=== PATIENT | female | born 1965 | race Caucasian/White ===

== ENCOUNTER 2017-04-17 11:23 | Inpatient (IN) | payer BC ==
[~2017-04-17] VITALS: Ht 167.6 cm; Wt 76.7 kg
[2017-04-17] MEDS ORDERED: BUPR300T PO (11:47)
[2017-04-17] MEDS ORDERED: CELE1CAP8 PO (11:47)
[2017-04-17] MEDS ORDERED: LEVO100T5 PO (11:47)
[2017-04-17] MEDS ORDERED: DULO1CAP3 PO (11:47)
[2017-04-17] MEDS ORDERED: ESTR2TAB PO (11:47)
[2017-04-17] MEDS ORDERED: PROG100C PO (11:47)
[2017-04-27] MEDS ORDERED: INSULIN HUMAN REGULAR 1,000 UNITS/10 ML VIAL SQ PRN (05:45)
[2017-04-27] MEDS ORDERED: METOPROLOL TARTRATE 25 MG TAB PO PRN (05:45)
[2017-04-27] MEDS ORDERED: LACTATED RINGER'S 1000 ML IV PRN (05:45)
[2017-04-27] MEDS ORDERED: CHLORHEXIDINE GLUCONATE 2 % 1 PACK (2 CLOTHS) TOPICAL PRN (05:45)
[2017-04-27] MEDS ORDERED: ceFAZolin 2 GM PREMIX 50 ML IV SCH (05:45)
[2017-04-27] MEDS ORDERED: SODIUM CHLORID 0.9% 500 ML IV PRN (05:45)
[2017-04-27] MEDS ORDERED: CHLORHEXIDINE GLUCONATE 4% SOLN 120 ML BTL TOPICAL SCH (05:45)
[2017-04-27] MEDS ORDERED: POVIDONE IODINE 5% (ANTISEPSIS KIT) 4 APPLICATIONS EACH NARE PRN (05:45)
[2017-04-27 05:48] VITALS: BP 144/93; PULSE 82; RESP 20; TEMP 98.2; O2SAT 97
[2017-04-27] MEDS ORDERED: GENTAMICIN SULFATE 80 MG/2 ML VIAL ONE (06:26)
[2017-04-27] MEDS ORDERED: MIDAZOLAM HCL 2 MG/2 ML VIAL ONE (06:39)
[2017-04-27] MEDS ORDERED: FAMOTIDINE 20 MG/2 ML VIAL ONE (06:39)
[2017-04-27] MEDS ORDERED: DEXAMETHASONE SOD PHOS 4 MG/ML VIAL ONE (06:39)
[2017-04-27] MEDS ORDERED: ACETAMINOPHEN 1000 MG/100 ML VIAL IV ONE (06:39)
[2017-04-27] MEDS ORDERED: SODIUM CHLORIDE 0.9% FLUSH 5 ML FLUSH IVF PRN (07:00)
[2017-04-27] MEDS ORDERED: ONDANSETRON HCL 4 MG/2 ML VIAL IVP PRN (07:00)
[2017-04-27] MEDS ORDERED: KETOROLAC TROMETHAMINE 30 MG/ML (IVP) VIAL IVP SCH (07:00)
[2017-04-27] MEDS ORDERED: MORPHINE SULFATE 4 MG/ML INJ IV PUSH PRN (07:00)
[2017-04-27] MEDS ORDERED: SODIUM CHLORIDE 0.9% IV SCH ×5 (07:00→10:00)
[2017-04-27] MEDS ORDERED: EXPAREL PERI-ARTICULAR INJECTION (TOTAL VOL. 60 ML) P-ARTICULR SCH ×2 (07:00)
[2017-04-27] MEDS ORDERED: MAGNESIUM HYDROXIDE SUSP 30 ML CUP PO PRN (07:00)
[2017-04-27] MEDS ORDERED: ACETAMINOPHEN/HYDROcodone 325 MG/7.5 MG TAB PO PRN ×2 (07:00)
[2017-04-27] MEDS ORDERED: TRANEXAMIC ACID IV SCH ×5 (07:00→10:00)
[2017-04-27] MEDS ORDERED: BISACODYL 10 MG SUPP RECTAL PRN (07:00)
[2017-04-27] MEDS ORDERED: ZOLPIDEM TARTRATE 5 MG TAB PO PRN (07:00)
[2017-04-27] MEDS ORDERED: Post-op Orders (for Pharmacy) MISC XX ONE (07:00)
[2017-04-27] MEDS ORDERED: PROGESTERONE PO SCH (09:00)
[2017-04-27] MEDS: DULoxetine HCl DR 60 MG CAP PO SCH (09:00)
[2017-04-27] MEDS: LEVOTHYROXINE SODIUM 100 MCG TAB PO SCH (09:00)
[2017-04-27] MEDS: ESTRADIOL 1 MG TAB PO SCH (09:00)
[2017-04-27] MEDS: buPROPion HCL 150 MG SUSTAINED RELEASE TAB PO SCH ×2 (09:00→20:09)
[2017-04-27] MEDS: CELECOXIB 200 MG CAP PO SCH (09:00)
[2017-04-27] MEDS: ASPIRIN EC 81 MG TABEC PO SCH ×2 (09:00→20:09)
[2017-04-27] MEDS ORDERED: DO NOT ADM ANY ANTICOAGULANT DRUGS PRN (09:58)
[2017-04-27] MEDS: LACTATED RINGER'S 1000 ML INJ 1,000 ML IV SCH (10:20)
[2017-04-27] MEDS: KETOROLAC TROMETHAMINE 30 MG/ML (IVP) VIAL IVP SCH ×2 (10:20→22:34)
[2017-04-27] MEDS: SODIUM CHLORIDE 0.9% FLUSH 5 ML FLUSH IVF SCH ×2 (10:20→20:09)
--- NOTE | 2017-04-27 10:49 | MP ---
cc: Rocio LORENZO. DATE OF SURGERY: 04/27/2017 PREOPERATIVE DIAGNOSIS Primary osteoarthritis left hip with protrusio acetabuli. POSTOPERATIVE DIAGNOSIS Primary osteoarthritis left hip with protrusio acetabuli. OPERATION PERFORMED Left total hip arthroplasty with [place] prosthesis. SURGEON Edy Lorenzo MD [employer]DLEWARE ARCHITECT Delvin Rincon. CSFA ANESTHESIA Spinal with supplemental local. INDICATIONS AND FINDINGS This 52-year-old woman has a 5 to 6 year history of progressive worsening of pain in her hip with limitation of activities. Increasing weightbearing causes increasing pain. She was previously able to walk unlimited but is now down to about a mile. Since the onset she has had treatment with analgesics, nonsteroidal anti-inflammatory agents, intra-articular corticosteroid injections, exercises and ambulatory aids. She has progressively worsened in spite of these. Physical findings showed marked limitation of motion in her hip with an antalgic component to her gait. X-rays showed advanced arthritis with degenerative changes and protrusio on the right and mild protrusio on the left. There were osteophytes encircling the neck, more on the left than the right. There is significant eburnation and loss of articular cartilage. Operative findings showed severe osteoarthritis with protrusio with large osteophytes about the acetabulum and some erosion in the midportion. The prosthesis used was a Tam prosthesis with the acetabulum being a 48 mm outer diameter Tritanium cluster shell with a 32 mm inner diameter, X3 polyethylene 0 degree liner. The femoral component was an Accolade II stem size 3 x 127 degree offset angle with the head being a Biolox Delta 32 mm outer diameter with a -4 mm neck length. PROCEDURE The patient was brought to the clean-air operating suite and a spinal anesthetic was administered. She received prophylactic antibiotics in the form of Ancef according to the protocol and also received tranexamic acid according to protocol. She was taken to the clean-air operating suite where spinal anesthetic was administered. She was positioned in a lateral position with left hip up, with an axillary roll under the right shoulder. The left hip was then prepped with alcohol, Hibiclens and Chloraprep and draped in the usual manner with hip draped free. An appropriate time-out procedure was carried out. A posterior lateral incision was made directly over the posterior superior aspect of the greater trochanter measuring approximately 12 cm. This was deepened through the subcutaneous tissues to the fascia pramod and gluteus fascia which were exposed. The incision needed to be extended and was done so distally and proximally. The fascia pramod and gluteus fascia were incised in line with fibers in the skin incision. A Charnley retractor was placed with wound towels. The hip was positioned appropriately. The external rotators were released off the posterior aspect of the greater trochanter. The posterior capsulotomy was carried out with a posteriorly based flap. There was no ability to dislocate the hip at this time. Osteophytes were then trimmed with combination of variety of osteotomes and a rongeur. After adequate debridement the hip was then carefully dislocated. The femoral neck was transected with the oscillating saw at the appropriate level. The femoral head was removed. The femoral preparation was then carried out with the box osteotome followed by a curette and a canal finding awl. The curette was then used for further delineation of the medullary canal. Broaching was then started at size 0 and went one size increments up to size 3. Calcar planing was carried out. The hip was then repositioned. With retractors in place the anterior osteophyte rim was identified to have displaced. This was then removed. With retractors in place the acetabulum was then prepared using reamers starting at 45 mm and going in 1-mm increments to 48 mm. Deepening of the acetabulum was not done because of the preexisting protrusio. After adequate reaming had been accomplished trial prosthesis was impacted into place. This seated appropriately. A size 48 mm Tritanium cup was impacted into place. When this was seated it was repositioned and a single screw was inserted. A trial prosthesis liner was inserted. Multiple trials were then carried out to identify appropriate alignment. The femoral component was then progressively deepened with repeat broaching. When this was adequate the acetabular liner was then repositioned again and the screw reinserted. This gave better appearance. The re-trialing was carried out. After the final deepening of the medullary canal of the femur the broach was removed. The hip was irrigated. Local anesthesia was administered throughout the capsular area with Exparel. The size 3 x 127 degree prosthesis was impacted into place and seated appropriately. Trial reduction was carried out again with a -4 mm neck length. This appeared to be appropriate. A -4 mm neck length 32 mm outer diameter Biolox Delta head was placed onto the cleaned and dried femoral trunnion. When this was seated the hip was reduced. The stability was excellent. The motion was good. The leg length appeared appropriate. The stability was excellent. There was no pistoning. Wound closure then commenced using #1 Vicryl interrupted transosseous sutures with a Krackow technique on the soft tissues. The fascia pramod and gluteus fascia were repaired with #1 Vicryl interrupted [id number] sutures after verifying the integrity of the sciatic nerve. The subcutaneous tissues were closed with 2-0 Vicryl interrupted simple sutures with buried knots. The skin was closed with continuous subcuticular closure of 4-0 Monocryl. The wound was then dressed with Steri-Strips followed by dry dressing, 4 x 4's, ABD and Medipore compression dressing. The patient was placed into a knee immobilizer and transferred to the recovery room in satisfactory condition having tolerated the procedure well. COUNTS Counts were correct. SPECIMENS None. ESTIMATED BLOOD LOSS 650 mL. MD JOEY Smith/BONILLA /9:50 AM /10:15 AM
--- NOTE | 2017-04-27 11:23 | RADRPT ---
EXAM DATE/TIME: 04/27/2017 10:36 [facility] COMPARISON: No previous studies available for comparison. INDICATIONS : Left hip prosthesis. MEDICAL HISTORY : None. SURGICAL HISTORY : None. ENCOUNTER: Initial ACUITY: 1 day PAIN SCORE: 7/10 LOCATION: Left hip FINDINGS: The patient is status post a total hip arthroplasty with a bipolar prosthesis. Prosthesis is well-sea rishabh. Alignment is anatomic. A fracture is not appreciated. CONCLUSION: Anatomic alignment. Carlos Jansen MD FACR Board Certified Radiologist. This report was verified electronically.
[2017-04-27 11:40] VITALS: BP 120/66; PULSE 76; RESP 16; TEMP 95.9; O2SAT 98
[2017-04-27] MEDS ORDERED: LACTATED RINGER'S 1000 ML INJ 1,000 ML IV ONE (11:49)
[2017-04-27] MEDS ORDERED: PROPOFOL 200 MG/20 ML AMP IV ONE (11:49)
[2017-04-27] MEDS ORDERED: ONDANSETRON HCL 4 MG/2 ML VIAL IV PUSH ONE (11:49)
[2017-04-27 15:30] VITALS: BP 124/61; PULSE 71; RESP 16; TEMP 96.2; O2SAT 99
[2017-04-27 15:40] VITALS: O2SAT 98
--- NOTE | 2017-04-27 16:12 | PD.CONS ---
HPI Service [facility] Consult Requested By Dr. Colbert Reason for Consult Medical management Primary Care Physician Junior Montiel MD Diagnoses: History of Present Illness This is a 52-year-old white female with significant past medical history of osteoarthritis and hypothyroid. Patient admitted for elective orthopedic surgery. Patient underwent left total hip arthroplasty. Patient resting comfortably at this time, pain well managed. She attempted to get up earlier and became very nauseous and dizzy; now resting comfortably and has no complaints. Hospital services are requested for medical management Review of Systems Constitutional: DENIES: Diaphoretic episodes, Fatigue, Fever, Weight gain, Weight loss, Chills, Dizziness, Change in appetite, Night Sweats Endocrine: DENIES: Abnorml menstrual pattern, Heat/cold intolerance, Polydipsia , Polyuria, Polyphagia Eyes: DENIES: Blurred vision, Diplopia, Eye inflammation, Eye pain, Vision loss , Photosensitivity, Double Vision Ears, nose, mouth, throat: DENIES: Tinnitus, Hearing loss, Vertigo, Nasal discharge, Oral lesions, Throat pain, Hoarseness, Ear Pain, Running Nose, Epistaxis, Sinus Pain, Toothache, Odynophagia Respiratory: DENIES: Apneas, Cough, Snoring, Wheezing, Hemoptysis, Sputum production, Shortness of breath Gastrointestinal: DENIES: Abdominal pain, Black stools, Bloody stools, Constipation, Diarrhea, Nausea, Vomiting, Difficulty Swallowing, Anorexia Genitourinary: DENIES: Abnormal vaginal bleeding, Dysmenorrhea, Dyspareunia, Sexual dysfunction, Urinary frequency, Urinary incontinence, Urgency, Hematuria , Dysuria, Nocturia, Vaginal discharge Musculoskeletal: COMPLAINS OF: Joint pain, DENIES: Muscle aches, Stiffness, Joint Swelling, Back pain, Neck pain Integumentary: DENIES: Abnormal pigmentation, Pruritus, Rash, Nail changes, Breast masses, Breast skin changes, Nipple discharge Hematologic/lymphatic: DENIES: Bruising, Lymphadenopathy Immunologic/allergic: DENIES: Eczema, Urticaria Psychiatric: DENIES: Anxiety, Confusion, Mood changes, Depression, Hallucinations, Agitation, Suicidal Ideation, Homicidal Ideation, Delusions Past Family Social History Past Medical History Osteoarthritis Hypothyroid Anxiety Melanoma Past Surgical History Breast enhancement surgery Hysterectomy Melanoma removal Reported Medications Reported Meds & Active Scripts Active Reported Progesterone Micronized 100 Mg Cap 100 Mg PO DAILY Estradiol 2 Mg Tab 2 Mg PO DAILY Duloxetine (Duloxetine HCl) 60 Mg Capdr 60 Mg PO DAILY Celecoxib 200 Mg Cap 200 Mg PO DAILY Bupropion HCl ER 24 HR (Bupropion HCl) 300 Mg Tab 300 Mg PO DAILY Levothyroxine (Levothyroxine Sodium) 100 Mcg Tab 125 Mcg PO DAILY Allergies: Coded Allergies: No Known Allergies (Unverified , 04/27/17) Active Ordered Medications Inpatient Medications Acetaminophen/ Hydrocodone Bitart ([place] 7.5-325 Mg) 2 tab Q4H PRN PO PAIN SCALE 5 TO 10; Start 04/27/17 at 07:00 Aspirin (Ecotrin Ec) 81 mg BID PO ; Start 04/27/17 at 09:00 Bisacodyl (Dulcolax Supp) 10 mg DAILY PRN RECTAL CONSTIPATION; Start 04/27/17 at 07:00 Bupivacaine Liposome 20 ml/ Sodium Chloride 60 ml @ 120 mls/hr ONCE P-ARTICULR Last administered on 04/27/17 07:26; Start 04/27/17 at 07:00; Stop 04/27/17 at 13:00; Status DC Bupropion HCl (Wellbutrin Sr) 150 mg BID PO ; Start 04/27/17 at 09:00 Cefazolin Sodium/ Dextrose 50 ml @ 100 mls/hr ICD 9 CODER IV Last administered on 04/27/17 07:13; Start 04/27/17 at 05:45; Stop 04/28/17 at 05:44 Cefazolin Sodium/ Sodium Chloride (Ancef Inj/NS Inj) 100 ml @ 200 mls/hr Q6H IV Last administered on 04/27/17 13:09; Start 04/27/17 at 14:00; Stop 04/28/17 at 02:29 Celecoxib (CeleBREX) 200 mg DAILY PO ; Start 04/27/17 at 09:00 Chlorhexidine Gluconate (Chlorhexidine 2% Cloth) 3 pack ICD 9 CODER PRN TOPICAL SEE LABEL COMMENTS Last administered on 04/27/17 05:30; Start 04/27/17 at 05:45; Stop 04/30/17 at 05:44 Chlorhexidine Gluconate 1 applic 1 applic ONCE TOPICAL ; Start 04/27/17 at 05:45 ; Stop 04/30/17 at 05:44 Docusate Sodium (Colace) 100 mg BID PO ; Start 04/28/17 at 21:00 Duloxetine HCl (Cymbalta Dr) 60 mg DAILY PO ; Start 04/27/17 at 09:00 Estradiol (Estradiol) 2 mg DAILY PO ; Start 04/27/17 at 09:00 Insulin Human Regular (NovoLIN R INJ) See Protocol Table ... ICD 9 CODER PRN SQ SEE PROTOCOL TABLE; Start 04/27/17 at 05:45; Stop 04/30/17 at 05:44 IV Flush (NS Flush) 2 ml UNSCH PRN IVF FLUSH AFTER USING IV ACCESS; Start at 07:00 IV Flush 2 ml 2 ml BID IVF Last administered on 04/27/17 10:20; Start 04/27/17 at 09:00 Ketorolac Tromethamine (Toradol Inj) 15 mg Q6H IVP Last administered on 10:20; Start 04/27/17 at 10:00; Stop 04/29/17 at 04:01 Ketorolac Tromethamine 15 mg 15 mg Q6H IVP ; Start 04/27/17 at 07:00; Stop at 10:44; Status DC Lactated Ringer's (Lr 1000 ml Inj) 1,000 ml @ 80 mls/hr [id number] IV Last administered on 04/27/17 10:20; Start 04/27/17 at 06:47 Levothyroxine Sodium (Synthroid) 125 mcg DAILY@06 PO ; Start 04/27/17 at 09:00 Magnesium Hydroxide (Milk Of Magnesia Liq) 30 ml DAILY PRN PO CONSTIPATION; Start 04/27/17 at 07:00 Metoprolol Tartrate (Lopressor) 25 mg ICD 9 CODER PRN PO SEE LABEL COMMENTS; Start 04/27/17 at 05:45; Stop 04/30/17 at 05:44 Miscellaneous Information ALL NURSING DEPARTME... UNSCH PRN .XX SEE LABEL COMMENTS; Start 04/27/17 at 09:58; Stop 04/28/17 at 09:57 Miscellaneous Information (Post-op Orders (for Pharmacy)) STAT ONCE XX ; Start 04/27/17 at 07:00; Stop 04/27/17 at 08:33; Status DC Morphine Sulfate (Morphine Inj) 4 mg Q3H PRN IV PUSH BREAKTHROUGH PAIN; Start 04/27/17 at 07:00 Ondansetron HCl (Zofran Inj) 4 mg Q6H PRN IVP NAUSEA OR VOMITING Last administered on 04/27/17 14:58; Start 04/27/17 at 07:00 Patient Own Medication PT OWN MED: PROGESTERONE MICRONI... DAILY PO ; Start 04/27 at 09:00; Status Hold Povidone Iodine (Betadine 5% Antisepsis Kit) 1 applic ICD 9 CODER PRN EACH NARE SEE LABEL COMMENTS Last administered on 04/27/17 05:55; Start 04/27/17 at 05:45; Stop 04/30/17 at 05:44 Sodium Chloride (NS 500 ml Inj) 500 ml @ 30 mls/hr [id number] PRN IV SEE LABEL COMMENTS; Start 04/27/17 at 05:45; Stop 04/30/17 at 05:44 Tranexamic Acid 767 mg/Sodium Chloride 107.67 ml @ 200 mls/ hr ONCE IV ; Start 04/27/17 at 10:00; Stop 04/27/17 at 10:00; Status DC Tranexamic Acid/ Sodium Chloride (Cyklokapron Inj/ NS Inj) 107.67 ml @ 200 mls / hr UNSCH IV Last administered on 04/27/17 07:01; Start 04/27/17 at 07:00; Stop 04/27/17 at 07:33; Status DC Zolpidem Tartrate (Ambien) 5 mg HS PRN PO SLEEP; Start 04/27/17 at 07:00 Family History Reviewed, noncontributory Social History Patient is , has 1 child. No smoking, no alcohol, no substance abuse Physical Exam Vital Signs Vital Signs Date Time Temp Pulse Resp B/P Pulse Ox O2 Delivery O2 Flow Rate FiO2 04/27/17 15:40 98 21 04/27/17 11:40 95.9 76 16 120/66 98 04/27/17 11:00 70 16 107/66 97 Room Air 04/27/17 10:45 74 16 13/62 98 Room Air 04/27/17 10:30 72 16 102/59 96 Room Air 04/27/17 10:15 72 16 99/59 97 Room Air 04/27/17 10:02 97.4 78 16 100/59 96 Room Air 04/27/17 05:48 98.2 82 20 144/93 97 Physical Exam GENERAL: This is a well-nourished, well-developed patient, in no apparent distress. SKIN: No rashes, ecchymoses or lesions. Cool and dry. HEAD: Atraumatic. Normocephalic. No temporal or scalp tenderness. EYES: Pupils equal round and reactive. Extraocular motions intact. No scleral icterus. No injection or drainage. ENT: Nose without bleeding, purulent drainage or septal hematoma. Throat without erythema, tonsillar hypertrophy or exudate. Uvula midline. Airway patent. NECK: Trachea midline. No JVD or lymphadenopathy. Supple, nontender, no meningeal signs. CARDIOVASCULAR: Regular rate and rhythm without murmurs, gallops, or rubs. RESPIRATORY: Clear to auscultation. Breath sounds equal bilaterally. No wheezes , rales, or rhonchi. GASTROINTESTINAL: Abdomen soft, non-tender, nondistended. No hepato-splenomegaly , or palpable masses. No guarding. MUSCULOSKELETAL: Left hip dressing dry and intact. Left pedal pulse 2+. Able to dorsiflex left Foot. Intact sensation to left foot. No other joint abnormality NEUROLOGICAL: Awake and alert. Cranial nerves II through XII intact. Motor and sensory grossly within normal limits. Five out of 5 muscle strength in all muscle groups. Normal speech. Laboratory Laboratory Tests Test 04/27/17 05:45 Blood Type A NEGATIVE Antibody Screen NEGATIVE Imaging Last Impressions Hip X-Ray 04/27/17 0647 Signed Impressions: Service Date/Time: Thursday, April 27, 2017 10:36 - CONCLUSION: Anatomic alignment. Carlos Jansen MD A/P Diagnosis: (1) Primary osteoarthritis of left hip (2) Status post total replacement of left hip (3) Hypothyroid Assessment and Plan Thank you for this consultation, we will assist with medical management History of OA of left hip osteoarthritis, status post left total hip arthroplasty. -Continue with postoperative orthopedic care Aspirin for DVT prophylaxis per orthopedic orders. Continue with pain management Bowel regimen Physical therapy Hypothyroid Continue home meds Continue with aspirin and teds for DVT prophylaxis Home medications reviewed, initiated as indicated Repeat labs in the morning Plan of care has been discussed with the patient, attending and registered nurse. Further management of the patient will be dependent on the hospital course This patient was seen by myself and Dr. Jhonny, this H&P is written on her behalf Problem Qualifiers (1) Hypothyroid: Qualified Code: E03.9 - Hypothyroidism, unspecified type Dee Dee Jones Apr 27, 2017 16:12
[2017-04-27] MEDS ORDERED: ACETAMINOPHEN/HYDROcodone 325 MG/5 MG TAB PO PRN ×2 (17:30→18:30)
[2017-04-27 20:33] VITALS: BP 144/80; PULSE 75; RESP 16; TEMP 97.4; O2SAT 99
[2017-04-27] MEDS: ACETAMINOPHEN/HYDROcodone 325 MG/7.5 MG TAB PO PRN (20:42)
--- NOTE | 2017-04-27 21:44 | HHI.FF ---
Face to Face Verification Diagnosis: (1) Status post total replacement of left hip Physical Therapy Gait training Hip: Total hip, Protocol: Left, Posterior hip precautions, Progress to weight bearing Canvas Knee Splint: When in bed & 2 pillows btw thighs Left LE Weight Bearing: WB as tolerated Left LE Range of Motion: Active ROM Nursing Nursing: Dressing changes Dressing Changes: Daily dressing change, Coverderm/Primapore Additional Instructions Remove steristrips on postop day14. I have seen patient Adalgisa Castro on 04/27/17. My clinical findings support the need for the requested home health care services because: Ltd mobility - disease progression Limited ability to care for self High risk of falls I certify that my clinical findings support that this patient is homebound because: Post-op weakness Unsteady gait/balance Unsafe to leave home unassisted Edy Colbert MD (Charles) Apr 27, 2017 21:44
[2017-04-28] VITALS: BP 156/83; PULSE 91; RESP 17; TEMP 98; O2SAT 96
[2017-04-28] MEDS: ACETAMINOPHEN/HYDROcodone 325 MG/7.5 MG TAB PO PRN ×4 (01:11→13:48)
[2017-04-28 04:00] VITALS: BP 139/85; PULSE 92; RESP 16; TEMP 97.4; O2SAT 97
[2017-04-28] MEDS: KETOROLAC TROMETHAMINE 30 MG/ML (IVP) VIAL IVP SCH ×2 (04:09→10:36)
[2017-04-28] MEDS: LEVOTHYROXINE SODIUM 100 MCG TAB PO SCH (05:53)
--- NOTE | 2017-04-28 06:11 | PD.ORT.PN ---
Subjective Post Op Day #: 1 Subjective Remarks She is doing well. She had pain last night but is better today. She has walked to the bathroom twice. Distance Walked 25 feet twice. Objective Vitals Vital Signs Date Time Temp Pulse Resp B/P Pulse Ox O2 Delivery O2 Flow Rate FiO2 04/28/17 00:00 98.0 91 17 156/83 96 04/27/17 20:33 97.4 75 16 144/80 99 04/27/17 15:40 98 21 04/27/17 15:30 96.2 71 16 124/61 99 04/27/17 11:40 95.9 76 16 120/66 98 04/27/17 11:00 70 16 107/66 97 Room Air 04/27/17 10:45 74 16 13/62 98 Room Air 04/27/17 10:30 72 16 102/59 96 Room Air 04/27/17 10:15 72 16 99/59 97 Room Air 04/27/17 10:02 97.4 78 16 100/59 96 Room Air I/O 04/27/17 04/27/17 04/27/17 04/28/17 04/28/17 04/28/17 07:00 15:00 23:00 07:00 15:00 23:00 Intake Total 530 ml 480 ml Balance 530 ml 480 ml Intake Oral 480 ml 480 ml IV Total 50 ml # Voids 1 3 # Bowel Movements 0 0 Imaging Hip x-ray looks good. Last 24 hours Impressions Hip X-Ray 04/27/17 0647 Signed Impressions: Service Date/Time: Thursday, April 27, 2017 10:36 - CONCLUSION: Anatomic alignment. Carlos Jansen MD Objective Remarks She is resting comfortably supine in bed. The dressing is dry and intact. The neurovascular status is intact. Assessment & Plan Ortho Post Op Day #: 1 Problem List: (1) Status post total replacement of left hip Plan: Continue postop care and PT. Assessment and Plan Condition: Good. Orthopaedically stable. DVT prophylaxis: ASA, TEDs, sequentials. Discharge plans: Home with [facility]. Has appointment. Rx: [place] 7.5/325. Edy Colbert MD (Charles) Apr 28, 2017 06:10
[2017-04-28 06:27] LABS: AUTOMATED NEUTROPHIL # 6.2 TH/MM3 (1.8-7.7); BASOPHIL % 0.5 % (0.0-2.0); EOSINOPHIL % 0.5 % (0.0-4.0); HEMATOCRIT 30.1 % (35.0-46.0); HEMO FLAGS DIFF FINAL; LYMPH % 25.7 % (9.0-44.0); LYMPHOCYTE # 2.5 TH/MM3 (1.0-4.8); MEAN CELL VOLUME 86.3 FL (80.0-100.0); MEAN CORPUSCULAR HGB CONC 34.8 % (32.0-36.0); MONO % 10.5 % (0.0-8.0); NEUT % 62.8 % (16.0-70.0); PLATELET COUNT 256 TH/MM3 (150-450); RED BLOOD COUNT 3.48 MIL/MM3 (4.00-5.30); RED CELL DISTRIBUTION WIDTH 12.8 % (11.6-17.2); WHITE BLOOD COUNT 9.9 TH/MM3 (4.0-11.0)
[2017-04-28] MEDS ORDERED: ASPI-99 PO (06:36)
[2017-04-28] MEDS ORDERED: HYDR-3516 PO (06:36)
[2017-04-28 06:51] LABS: BICARBONATE 31.6 MEQ/L (21.0-32.0); POTASSIUM 3.7 MEQ/L (3.5-5.1)
[2017-04-28] MEDS: LACTATED RINGER'S 1000 ML INJ 1,000 ML IV SCH (07:47)
[2017-04-28 08:00] VITALS: BP 111/66; PULSE 86; RESP 20; TEMP 96.8; O2SAT 97
[2017-04-28] MEDS: buPROPion HCL 150 MG SUSTAINED RELEASE TAB PO SCH (08:32)
[2017-04-28] MEDS: CELECOXIB 200 MG CAP PO SCH (08:32)
[2017-04-28] MEDS: DULoxetine HCl DR 60 MG CAP PO SCH (08:32)
[2017-04-28] MEDS: ASPIRIN EC 81 MG TABEC PO SCH (08:33)
[2017-04-28] MEDS: SODIUM CHLORIDE 0.9% FLUSH 5 ML FLUSH IVF SCH (08:35)
[2017-04-28] MEDS: ESTRADIOL 1 MG TAB PO SCH (10:37)
--- NOTE | 2017-04-28 10:46 | HHI.PR ---
Subjective Subjective Remarks Sitting up, no nausea, no vomiting Pain well-controlled No fever No chest pain No shortness of breath No BM yet Review of Systems Constitutional Constitutional Remarks 12 point review of systems completed, negative except as noted above Vitals/Results Intake & Output 04/27/17 04/27/17 04/28/17 15:00 23:00 07:00 Intake Total 530 ml 480 ml 250 ml Balance 530 ml 480 ml 250 ml Intake Oral 480 ml 480 ml 250 ml IV Total 50 ml # Voids 1 3 3 # Bowel Movements 0 0 0 Vital Signs Vital Signs Date Time Temp Pulse Resp B/P Pulse Ox O2 Delivery O2 Flow Rate FiO2 04/28/17 08:00 96.8 86 20 111/66 97 04/28/17 04:00 97.4 92 16 139/85 97 04/28/17 00:00 98.0 91 17 156/83 96 04/27/17 20:33 97.4 75 16 144/80 99 04/27/17 15:40 98 21 04/27/17 15:30 96.2 71 16 124/61 99 04/27/17 11:40 95.9 76 16 120/66 98 04/27/17 11:00 70 16 107/66 97 Room Air 04/27/17 10:45 74 16 13/62 98 Room Air CBC/BMP: 04/28/17 0521 04/28/17 0521 Lab Results Laboratory Tests Test 04/28/17 05:21 White Blood Count 9.9 TH/MM3 Red Blood Count 3.48 MIL/MM3 Hemoglobin 10.4 GM/DL Hematocrit 30.1 % Mean Corpuscular Volume 86.3 FL Mean Corpuscular Hemoglobin 30.0 PG Mean Corpuscular Hemoglobin 34.8 % Concent Red Cell Distribution Width 12.8 % Platelet Count 256 TH/MM3 Mean Platelet Volume 8.4 FL Neutrophils (%) (Auto) 62.8 % Lymphocytes (%) (Auto) 25.7 % Monocytes (%) (Auto) 10.5 % Eosinophils (%) (Auto) 0.5 % Basophils (%) (Auto) 0.5 % Neutrophils # (Auto) 6.2 TH/MM3 Lymphocytes # (Auto) 2.5 TH/MM3 Monocytes # (Auto) 1.0 TH/MM3 Eosinophils # (Auto) 0.0 TH/MM3 Basophils # (Auto) 0.0 TH/MM3 CBC Comment DIFF FINAL Differential Comment Sodium Level 138 MEQ/L Potassium Level 3.7 MEQ/L Chloride Level 102 MEQ/L Carbon Dioxide Level 31.6 MEQ/L Anion Gap 4 MEQ/L Blood Urea Nitrogen 8 MG/DL Creatinine 0.87 MG/DL Estimat Glomerular Filtration 68 ML/MIN Rate Random Glucose 110 MG/DL Calcium Level 8.2 MG/DL Physical Exam General General Appearance: Well Developed, Well Nourished, No Acute Distress, Comfortable Eyes Eye Exam: Pupils Equal, Pupils Reactive Ears & Nose Ears & Nose Exam: Nasal Mucosa Dorothy Throat Throat Exam: Oral Mucosa Dorothy & Moist Neck Neck Exam: Neck Supple, Trachea Midline Pulmonary Resp Exam: Clear Bilaterally, No Distress Cardiology CV Exam: Regular, Good Perfusion Gastrointestinal/Abdomen GI Exam: Soft, Non-Tender, Bowel Sounds Present, Positive Bowel Movement, Peristalsis, No Hepatosplenomegaly, Non-Distended, Distended Musculoskeletal MS Exam: Joints Intact MS Remarks Left hip dressing dry and intact Integumentary Skin Exam: Warm, Dry Extremeties Extremities Exam: No Edema, Pedal Pulses Palpable Neurologic Neuro Exam: Alert, Awake, Oriented, Speech Clear, Moving All Extremities, No Focal Deficits Psychiatric Psych Exam: Appropriate Responses VTE Prophylaxis VTE Prophylaxis Device: TEDs VTE Remarks ASA Assessment/Plan Problem List: (1) Status post total replacement of left hip (2) Hypothyroid (3) Primary osteoarthritis of left hip Assessment/Plan History of OA of left hip osteoarthritis, status post left total hip arthroplasty. -Continue with postoperative orthopedic care Aspirin for DVT prophylaxis per orthopedic orders. Continue with pain management Bowel regimen Physical therapy Hypothyroid Continue home meds Continue with aspirin and teds for DVT prophylaxis Labs reviewed, H&H stable Discussed with attending Discussed with Dr. Barry This patient was seen by myself and Dr. Barry, this note is written on her behalf Problem Qualifiers (1) Hypothyroid: Qualified Code: E03.9 - Hypothyroidism, unspecified type Dee Dee JonesP Apr 28, 2017 10:46
[2017-04-28 12:00] VITALS: BP 126/73; PULSE 87; RESP 20; TEMP 98; O2SAT 97
[2017-04-28] MEDS ORDERED: DOCUSATE SODIUM 100 MG CAP PO SCH (21:00)
== END 2017-04-28 16:09 | disposition home health service (06) | DRG 470 ==
LOC: HSDI 04-27 05:13 → N06B 04-27 11:36
PROVIDERS: ADMIT Orthopaedic Surgery; ATTEND Orthopaedic Surgery
PROC: 0SR902Z Replacement of Right Hip Joint with Metal on Polyethylene Synthetic Substitute, Open Approach (ICD-10-PCS; principal; 2017-04-27 06:44)
DX: M16.12 Unilateral primary osteoarthritis, left hip (principal); E03.9 Hypothyroidism, unspecified; M24.7 Protrusio acetabuli; M25.751 Osteophyte, right hip; F41.9 Anxiety disorder, unspecified; Z85.820 Personal history of malignant melanoma of skin
CPT/HCPCS: 73502; 80048; 85025; 86850; 86900; 86901; 94150; C1776; C9290; J0131; J0690; J1100; J1580; J1885; J2250; J2405; J3010; J7120; L1830

== ENCOUNTER → 2017-04-17 | Outpatient (CLI) | payer BC ==
[~2017-04-17] MED LIST: ASPI-99 PO; BUPR300T PO; CELE1CAP8 PO; CELE200C PO; DULO1CAP3 PO; DULO20 PO; ESTR2TAB PO; ESTR2TAB4 PO; HYDR-3516 PO; LEVO100T5 PO; LEVO125T3 PO; MULTCAP PO; OMEG5CAP PO; PROG100C PO
--- NOTE | 2017-04-18 16:09 | EKG ---
Date Performed: 04/17/2017 Time Performed: 11:39:19 PTAGE: 52 years EKG: Sinus rhythm NORMAL ECG PREVIOUS TRACING 01/08/16 10.40.42 DOCTOR: Jose David Cotto Interpretating Date/Time 04/18/2017 16:07:17
== END ==
LOC: CPRE 11:12
PROVIDERS: ATTEND Orthopaedic Surgery
DX: Z01.810 Encounter for preprocedural cardiovascular examination (principal); M16.12 Unilateral primary osteoarthritis, left hip; M79.609 Pain in unspecified limb; E03.9 Hypothyroidism, unspecified
CPT/HCPCS: 93005